=== PATIENT | male | born 1980 | race Caucasian/White ===

== ENCOUNTER 2017-09-16 16:44 | Emergency (ER) | payer SELFPAY ==
--- NOTE | 2017-09-16 17:27 | EDM.PDOC ---
ED HPI GENERAL MEDICAL PROBLEM - General Chief Complaint: Lower Extremity Injury/Pain Stated Complaint: LEFT ANKLE PAIN Time Seen by Provider: 09/16/17 16:53 Source of Information: Reports: Patient History Limitations: Reports: No Limitations - History of Present Illness INITIAL COMMENTS - FREE TEXT/NARRATIVE: The patient presents with left ankle pain and edema. This started about 3 days ago. He does not remember injuring his ankle. He did not twist it or step wrong. He did have a bad fracture about 16 years ago in that ankle but he has not had trouble since. He may get a little edema in that ankle at times. He has no fever or chills. He has no chest pain or shortness of breath. He does not have a history of gout and he has no history of chest pain or shortness of breath. Onset: Gradual Duration: Day(s): (3) Location: Reports: Lower Extremity, Left (ankle) Quality: Reports: Sharp Severity: Moderate Improves with: Reports: Immobilization Worsens with: Reports: Movement Context: Reports: Activity (No injury that he remembers) Associated Symptoms: Reports: No Other Symptoms Left Ankle Pain Score (Numeric/FACES): 9 - Related Data Allergies Allergy/AdvReac Type Severity Reaction Status Date / Time Penicillins Allergy Hives Verified 09/16/17 16:50 Home Meds: Home Meds Hydrocodone/Acetaminophen [Hydrocodon-Acetaminophen 5-325] 1 - 2 each PO Q6HR PRN #20 tablet 09/16/17 [Rx] Indomethacin [Indocin] 50 mg PO BIDMEALS PRN #20 cap 09/16/17 [Rx] Past Medical History - Past Health History Medical/Surgical History: Denies Medical/Surgical History Social & Family History - Tobacco Use Smoking Status *Q: Never Smoker - Recreational Drug Use Recreational Drug Use: No Review of Systems - Review of Systems Review Of Systems: See Below Constitutional: Reports: No Symptoms Eyes: Reports: No Symptoms Ears: Reports: No Symptoms Nose: Reports: No Symptoms Mouth/Throat: Reports: No Symptoms Respiratory: Reports: No Symptoms Cardiovascular: Reports: No Symptoms GI/Abdominal: Reports: No Symptoms Genitourinary: Reports: No Symptoms Musculoskeletal: Reports: Other (Left ankle pain and edema) ED EXAM, GENERAL - Physical Exam Exam: See Below Exam Limited By: No Limitations General Appearance: Alert, No Apparent Distress Ears: Normal External Exam Nose: Normal Inspection Head: Atraumatic, Normocephalic Neck: Normal Inspection Respiratory/Chest: No Respiratory Distress Extremities: Other (Mild to moderate edema to the left ankle. Pain upon palpation to the medial malleolus. Good sensation and pulses distally.) Course - Vital Signs Last Recorded V/S: Last Vital Signs Temp 97.6 F 09/16/17 16:50 Pulse 96 09/16/17 16:50 Resp 19 09/16/17 16:50 BP 146/83 H 09/16/17 16:50 Pulse Ox 98 09/16/17 16:50 - Orders/Labs/Meds Orders: Active Orders 24 hr Category Date Time Status Ankle Min 3V Lt [CR] Stat Exams 09/16/17 17:03 Taken CRP, HIGH SENSITIVITY [REF] Stat Lab 09/16/17 17:10 Stop Req Labs: Laboratory Tests 09/16/17 09/16/17 09/16/17 Range/Units 17:10 17:10 17:10 WBC 7.82 (4.23-9.07) K/mm3 RBC 4.58 L (4.63-6.08) M/mm3 Hgb 14.3 (13.7-17.5) gm/L Hct 42.9 (40.1-51.0) % MCV 93.7 H (79.0-92.2) fl MCH 31.2 (25.7-32.2) pg MCHC 33.3 (32.2-35.5) g/dl RDW Std Deviation 43.9 (35.1-43.9) fL Plt Count 195 (163-337) K/mm3 MPV 10.4 (9.4-12.3) fl Neut % (Auto) 67.3 (34.0-67.9) % Lymph % (Auto) 21.1 L (21.8-53.1) % [place] % (Auto) 9.3 (5.3-12.2) % Eos % (Auto) 1.8 (0.8-7.0) Baso % (Auto) 0.4 (0.1-1.2) % Neut # (Auto) 5.26 (1.78-5.38) K/mm3 Lymph # (Auto) 1.65 (1.32-3.57) K/mm3 [place] # (Auto) 0.73 (0.30-0.82) K/mm3 Eos # (Auto) 0.14 (0.04-0.54) K/mm3 Baso # (Auto) 0.03 (0.01-0.08) K/mm3 ESR 34 H (0-15) mm/hr Uric Acid 8.7 H (3.5-7.2) mg/dL - Re-Assessments/Exams Free Text/Narrative Re-Assessment/Exam: 09/16/17 18:39 His x-ray shows some mild arthritis. His WBC was normal. His ESR was slightly elevated. His uric acid was elevated. 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 Take the hydrocodone as needed for pain. Avoid alcohol and processed meats this can make it worse. Follow up with Ksenia Alvarez in out clinic if not better in 1 week. Please return if you are worse. - My Orders Last 24 Hours: My Active Orders 09/16/17 17:03 Ankle Min 3V Lt [CR] Stat 09/16/17 17:10 CRP, HIGH SENSITIVITY [REF] Stat - Assessment/Plan Last 24 Hours: My Active Orders 09/16/17 17:03 Ankle Min 3V Lt [CR] Stat 09/16/17 17:10 CRP, HIGH SENSITIVITY [REF] Stat
--- NOTE | 2017-09-17 07:19 | CR ---
Left ankle: Three views of the left ankle were obtained. Comparison: No previous ankle study. Soft tissue swelling is identified. Deformity noted of the distal anterior tibia and within the talar dome compatible with old injury. No acute fracture or other bony abnormality is appreciated. Impression: 1. Soft tissue swelling. 2. Mild deformity as noted above compatible with old bony injury. 3. No acute bony abnormality is identified. Diagnostic code #2
== END 2017-09-16 19:06 | disposition home or self-care (01) ==
LOC: JD.ED 16:44
DX: M10.472 Other secondary gout, left ankle and foot (principal); Z88.0 Allergy status to penicillin
CPT/HCPCS: 36415; 73610-26-LT; 73610-LT; 84550; 85025; 85652; 86141; 99283